=== PATIENT | female | born 1995 | race Caucasian/White ===

== ENCOUNTER 2016-10-17 10:58 | Emergency (ER) | payer OTHER ==
[~2016-10-17] VITALS: Ht 154.9 cm; Wt 50.0 kg
[~2016-10-17 10:58] MED LIST: AMOXICILLIN500 MG PO; IBUPROFEN600 MG PO; PRE-NATAL PO; ZOFRAN ODT4 MG PO
[2016-10-17 11:45] LABS: HEMATOCRIT 36.7 % (37.0-47.0); IMMATURE GRANULOCYTES 0.2 % (0.0-1.0); MEAN CELL VOLUME 87.4 fL CALC (80.0-100.0); MEAN CORPUSCULAR HGB 28.6 pG CALC (26.0-32.0); MEAN CORPUSCULAR HGB CONC 32.7 g/L CALC (32.0-36.0); NEUT# 3.02 thou/uL (2.00-7.15); RED BLOOD COUNT 4.2 mill/uL (4.20-5.60)
[2016-10-17 12:03] LABS: ALBUMIN 4.4 g/dL (3.2-5.0); ALKALINE PHOSPHATASE 86 u/l (38-126); ANION GAP 16 (6-22 (CALC)); BILIRUBIN, TOTAL 0.5 mg/dL (0.0-1.4); BUN 7 mg/dL (7-17); BUN/CREATININE RATIO 16 (12-20 (CALC)); CALCIUM 9.7 mg/dL (8.4-10.2); CARBON DIOXIDE 21 mmol/l (22-30); CHLORIDE 107 mmol/l (95-108); CREATININE 0.4 mg/dL (0.5-1.0); GFR > 60 ML/MIN (>=60 (CALC)); GFR FOR AFR.AMER. > 60 ML/MIN (>=60 (CALC)); GLUCOSE 88 mg/dL (65-105); SGOT/AST 19 u/l (14-36); SGPT/ALT 31 u/l (9-52); SODIUM 140 mmol/l (137-146); TOTAL PROTEIN 7.1 g/dL (6.3-8.2)
[2016-10-17 12:53] VITALS: BP 126/59
== END 2016-10-17 12:59 | disposition home or self-care (01) | DRG 781 ==
LOC: ED 10:58
PROVIDERS: Emergency Medicine
DX: O26.891 Other specified pregnancy related conditions, first trimester (principal); R41.9 Unspecified symptoms and signs involving cognitive functions and awareness; R07.9 Chest pain, unspecified; Z3A.01 Less than 8 weeks gestation of pregnancy

== ENCOUNTER 2019-12-10 12:05 | Emergency (ER) | payer OTHER ==
[~2019-12-10] VITALS: Ht 154.9 cm; Wt 75.0 kg
[2019-12-10 13:21] LABS: URINE BILIRUBIN - DIPSTICK NEGATIVE (NEGATIVE); URINE BLOOD DIPSTICK TRACE-INTACT (NEGATIVE); URINE COLOR YELLOW; URINE EPITHELIAL CELLS FEW EPI/hpf (0-FEW); URINE GLUCOSE - DIPSTICK NEGATIVE (NEGATIVE); URINE KETONE NEGATIVE (NEGATIVE); URINE LEUK ESTERASE SMALL (NEGATIVE); URINE NITRITE - DIPSTICK NEGATIVE (Negative); URINE PH 8.5 (4.5-8.0); URINE PROTEIN - DIPSTICK NEGATIVE (NEG-TRACE); URINE RBC 0-2 RBC/hpf (0-5); URINE UROBILINOGEN - DIPSTICK 0.2 E.U./dL (0.2); URINE WBC 20-50 WBC/hpf (0-5)
[2019-12-10 13:22] LABS: URINE BACTERIA FEW hpf
[2019-12-10] MEDS ORDERED: MACRODANTIN100 MG PO (13:44)
[2019-12-10] MEDS ORDERED: PYRIDIUM200 MG PO (13:48)
[2019-12-10 14:25] VITALS: BP 111/60
== END 2019-12-10 14:32 | disposition home or self-care (01) ==
LOC: ED 12:05
PROVIDERS: Student in an Organized Health Care Education/Training Program
DX: N39.0 Urinary tract infection, site not specified (principal)

== ENCOUNTER 2022-02-23 19:14 | Emergency (ER) | payer MEDICAID ==
[~2022-02-23] VITALS: Ht 154.9 cm; Wt 57.0 kg
[~2022-02-23 19:14] MED LIST changes: +MACRODANTIN100 MG PO; +PYRIDIUM200 MG PO
[2022-02-23] MEDS ORDERED: HYDROCO/APAP1 TA9 PO (19:47)
[2022-02-23] MEDS ORDERED: PENICILLN VK500 MG PO (19:47)
[2022-02-23 20:07] VITALS: BP 102/62
== END 2022-02-23 20:16 | disposition home or self-care (01) ==
LOC: ED 19:14
DX: K08.89 Other specified disorders of teeth and supporting structures (principal)

== ENCOUNTER 2022-06-04 20:37 | Emergency (ER) | payer MEDICAID ==
[~2022-06-04] VITALS: Ht 154.9 cm; Wt 64.0 kg
[~2022-06-04 20:37] MED LIST changes: +HYDROCO/APAP1 TA9 PO; +PENICILLN VK500 MG PO
[2022-06-04] MEDS ORDERED: VOLTAREN - GENE75 MG PO (20:56)
[2022-06-04] MEDS ORDERED: AMOXICILLIN500 MG PO (20:56)
[2022-06-04] MEDS ORDERED: TRAMADOL HCL50 MG PO (20:56)
[2022-06-04 21:02] VITALS: BP 115/65
== END 2022-06-04 21:44 | disposition home or self-care (01) ==
LOC: ED 20:37
DX: K08.89 Other specified disorders of teeth and supporting structures (principal)

== ENCOUNTER 2023-04-24 08:55 | Emergency (ER) | payer OTHER ==
[~2023-04-24] VITALS: Ht 154.9 cm; Wt 64.7 kg
[~2023-04-24 08:55] MED LIST changes: +TRAMADOL HCL50 MG PO; +VOLTAREN - GENE75 MG PO
[2023-04-24 11:31] VITALS: BP 100/53
== END 2023-04-24 11:37 | disposition home or self-care (01) ==
LOC: ED 08:55
DX: J06.9 Acute upper respiratory infection, unspecified (principal); Z20.822 Contact with and (suspected) exposure to COVID-19